=== PATIENT | female | born 1990 | race Caucasian/White ===

== ENCOUNTER → 2020-10-19 | Outpatient (CLI) | payer OTHER, MEDICAID ==
--- NOTE | 2020-10-20 23:43 | ECWPNPC ---
PATIENT NAME: CHRISTY LEYVA : 1990 GENDER: FEMALE VISIT DATE: 10/19/2020 DISCHARGE DATE: 10/19/20 1020 VISIT LOCKED DATE TIME: PHYSICIAN: ALLIE FELIZ RESOURCE: ALLIE FELIZ REASON FOR APPOINTMENT 1. CHRONIC LOW BACK HISTORY OF PRESENT ILLNESS DEPRESSION SCREENING: PHQ-2 (2015 EDITION) LITTLE INTEREST OR PLEASURE IN DOING THINGS?NOT AT ALL FEELING DOWN, DEPRESSED, OR HOPELESS?NOT AT ALL TOTAL SCORE0 GENERAL: HPI 29-YEAR-OLD FEMALE IN FOR INITIAL PAIN CONSULT REGARDING CHRONIC LOW BACK PAIN. PATIENT STATES THE PAIN HAS BEEN PRESENT FOR APPROXIMATELY ONE YEAR SHE DENIES HISTORY OF TRAUMA TO THE AREA. PATIENT IS CURRENTLY ON GABAPENTIN AND SHE ADMITS THAT IT IS NOT BENEFICIAL. SHE RATES HER PAIN CURRENTLY AT A 5 OUT OF 10 AND DESCRIBES IT ACHING, CONTINUOUS, AND SHARP. PATIENT ADMITS THAT PREVIOUSLY WHEN SHE'S HAD PROCEDURES SHE EXPERIENCED EPISODES OF TACHYCARDIA.. - -. FALL RISK SCREENING: SCREENING : NO FALLS REPORTED IN THE LAST YEAR. PAIN SCREENING: PATIENT HAS A COMPLAINT OF ACUTE OR CHRONIC PAIN :YES LOCATION OF PAIN:LOW BACK INTENSITY OF PAIN (SCALE OF 1 TO 10):5 WHAT DOES YOUR PAIN FEEL LIKE:ACHING, CONTINOUS, SHARP DURATION:CONTINOUS, AWAKENS FROM SLEEP PAIN IS INCREASED BY:ACTIVITIES, PROLONGED STANDING PAIN IS DECREASED BY:OTHERS NOTHING HELPS THE PAIN NURSING NOTE: - -. PAIN CENTER INTAKE QUESTIONS: DO YOU HAVE A HISTORY OF MRSA? :NO DO YOU TAKE A BLOOD THINNERS? :NO DO YOU HAVE ANY BLEEDING DISORDERS? :NO ANY NEW NUMBNESS OR WEAKNESS IN YOUR LEGS OR ARMS? :NO NUMBNESS IN HANDS ANY PACEMAKER,DEFIBRILLATOR, OR DORSAL COLUMN STIMULATOR? :NO DO YOU HAVE ANY RASHES OR OPEN SORES? :NO ARE YOU ALLERGIC TO IV DYE? :NO ARE YOU DIABETIC? :NO ANY NEW PROBLEMS WITH YOUR MEDICATIONS? :NO HAVE YOU RECEIVED A VACCINE IN THE PAST 30 DAYS? :NO DO YOU PLAN TO RECEIVE A VACCINE IN THE NEXT 21 DAYS? :NO DO YOU NEED ANY PRESCRIPTION? :NO DO YOU TAKE ANY IMMUNOSUPPRESSIVE MEDICATIONS? :NO IS THERE A CHANCE YOU COULD BE ? :NO ARE YOU BREAST FEEDING? :NO CURRENT MEDICATIONS TAKING VENTOLIN HFA 108 (90 BASE) MCG/ACT AEROSOL SOLUTION 1 PUFF NEEDED INHALATION EVERY 4 HRS TAKING DULOXETINE HCL 30 MG CAPSULE DELAYED RELEASE PARTICLES 1 CAPSULE ORALLY ONCE DAILY TAKING GABAPENTIN 100 MG CAPSULE 1 CAPSULE ORALLY THREE TIMES DAILY TAKING SUMATRIPTAN SUCCINATE 50 MG TABLET 1 TABLET AT LEAST 2 HOURS BETWEEN DOSES NEEDED ORALLY TWICE A DAY TAKING TRAMADOL HCL 50 MG TABLET 1 TABLET NEEDED ORALLY ONCE A DAY TAKING SULFAMETHOXAZOLE-TMP DS , STOP DATE 10/21/2020, NOTES: FOR UTI TAKING DILTIAZEM HCL ER BEADS 120 MG CAPSULE EXTENDED RELEASE 24 HOUR 1 CAPSULE ORALLY ONCE A DAY TAKING ALBUTEROL SULFATE (2.5 MG/3ML) 0.083% NEBULIZATION SOLUTION 3 ML NEEDED INHALATION EVERY 4 HRS, PRN TAKING ACETAMINOPHEN 500 MG CAPSULE 2 TABLET NEEDED ORALLY EVERY 4 HRS NOT-TAKING ESCITALOPRAM OXALATE 10 MG TABLET 1 TABLET ORALLY ONCE A DAY NOT-TAKING CYCLOBENZAPRINE HCL 10 MG TABLET 1 TABLET AT BEDTIME NEEDED ORALLY ONCE A DAY NOT-TAKING PREDNISONE 10 MG TABLET 1 TABLET ORALLY WEANING DOSE 3TABS/DAY, 2 TABS/DAY, 1 TB/DAY NOT-TAKING HYDROCORTISONE MAX ST 1 % CREAM 1 APPLICATION EXTERNALLY TWICE A DAY NOT-TAKING IMMODIUM 1 TAB ORAL 1 TAB BY MOUTH WITH EACH LOOSE STOOL, MDD 6 NOT-TAKING LIDOCAINE & CANNABINOIDS 5 & 20 % & MG/ML THERAPY PACK DIRECTED COMBINATION NOT-TAKING HYDROCODONE-ACETAMINOPHEN 5-325 MG TABLET 1 TABLET NEEDED ORALLY BID, PRN NOT-TAKING IBUPROFEN 800 MG TABLET 1 TABLET WITH FOOD OR MILK NEEDED ORALLY THREE TIMES DAILY NEEDED MEDICATION LIST REVIEWED AND RECONCILED WITH THE PATIENT PAST MEDICAL HISTORY ANXIETY ASTHMA DEPRESSION ACID REFLUX ATTENTION DEFICIT HYPERACTIVITY DISORDER HX HEART MURMUR AT HX CERVICAL DYSPLASIA HX OF GONORRHEA MISCARRIAGE ARTHRITIS OSTEOPOROSIS LEFT KNEE CYST MIGRAINES PTSD SINUS TACHYCARDIA ALLERGIES AMOXICILLIN: RASH - ALLERGY EXCEDRIN EXTRA STRENGTH: BLISTERS - ALLERGY PENICILLIN (FOR ALLERGIES USE ONLY): ANAPHYLAXIS - ALLERGY SURGICAL HISTORY 2009 & 2012 ENDOSCOPY TUBAL LIGATION 2016 FAMILY HISTORY FATHER: ALIVE 50 YRS MOTHER: ALIVE 48 YRS SON(S): ALIVE DAUGHTER(S): ALIVE MATERNAL GRAND FATHER: MATERNAL GRAND MOTHER: UNKNOWN 2 SON(S) , 2 DAUGHTER(S) - HEALTHY. MOTHER- HX OF MENTAL RETARDATION. SOCIAL HISTORY GENERAL: TOBACCO USE ARE YOU A:CURRENT SMOKER ARE YOU INTERESTED IN QUITTING?THINKING ABOUT QUITTING PREVIOUS QUIT ATTEMPTS?YES, WITHIN THE LAST 6 MONTHS. HOW MANY CIGARETTES A DAY DO YOU SMOKE?6-10 PATIENT COUNSELED ON THE DANGERS OF TOBACCO USE AND URGED TO QUIT:10/19/2020 SMOKING CESSATION INFORMATION GIVEN04/30/2019 REFUSED LATEX QUESTIONNAIRE LATEX ALLERGY : HAVE YOU EVER DEVELOPED ANY TYPE OF REACTION AFTER HANDLING LATEX PRODUCTS SUCH RUBBER GLOVES, CONDOMS, DIAPHRAGMS, BALLOONS, SOCKS, OR UNDERWEAR?NO LATEX ALLERGY : HAVE YOU EVER DEVELOPED ANY TYPE OF REACTION DURING OR AFTER DENTAL APPOINTMENT, VAGINAL/RECTAL EXAMINATION, SURGICAL PROCEDURE, OR ANY OTHER EXPOSURE?NO LATEX RISK : HAVE YOU EVER HAD ANY DIFFICULTY BREATHING OR HIVES AFTER EATING OR HANDLING ANY FRUITS, OR VEGETABLES; SUCH KIWI, BANANAS, STONE FRUITS, OR CHESTNUTSNO LATEX RISK : DO YOU HAVE A PREVIOUS PERSONAL HISTORY OF MORE THAN NINE SURGERIES, SPINA BIFIDA, OR REPEATED CATHERIZATIONS? NO LATEX RISK : ARE YOU FREQUENTLY EXPOSED TO LATEX PRODUCTS IN YOUR OCCUPATION?NO DATE ASKED : 10/19/2020 ALCOHOL USE: NO. RECREATIONAL DRUG USE DRUG USE?NO CAFFEINE CAFFEINE USE?YES HOW OFTEN AND HOW MUCH? 1-2 CUPS PER DAY BAHAI BAHAI NO CONFUCIANIST BELIEFS THAT WOULD IMPACT HEALTH CARE. LANGUAGE LANGUAGES SPOKEN:PASHTO EDUCATION LEVEL OF EDUCATION: GED LEARNING BARRIERS / SPECIAL NEEDS BARRIERS TO LEARNING?YES COMMENTS LEARNING DISABILITY HEARING IMPAIRED?NO VISION IMPAIRED?YES :CORRECTIVE LENSES COGNITIVELY IMPAIRED?NO READINESS TO LEARN?YES LEARNING PREFERENCES?NO LEARNING CAPABILITIES PRESENT?YES EMOTIONAL BARRIERS?YES COMMENTS ANXIETY, DEPRESSION AND PTSD SPECIAL DEVICES?NO PANEL RAISER OPERATOR NEEDED?NO DOMESTIC VIOLENCE DO YOU FEEL SAFE IN YOUR ENVIRONMENT?YES OCCUPATION: UNEMPLOYED. DIET: REGULAR, NO RESTRICTIONS. EXERCISE: NO REGULAR EXERCISE. MARITAL STATUS: . OTHERS AT HOME: LIVES WITH OTHERS. PATIENT DESCRIBES PAIN :SHARP, STABBING, TENDER, SORE FROM 0-10, WHAT LEVEL IS YOUR PAIN TODAY?6 HAVE YOU BEEN SICK IN THE LAST WEEK (COLD, COUGH, FEVER, FLU, ETC)YES DO YOU TAKE ANY BLOOD THINNERS?NO DO YOU HAVE ANY RASHES OR OPEN SORES?YES OPEN SORES ANY CHANGE IN BOWEL OR BLADDER CONTROL?NO ARE YOU ALLERGIC TO SHELLFISH OR IV DYE?NO ARE YOU DIABETIC?NO DO YOU HAVE A PACEMAKER OR DEFIBRILLATOR?NO ANY NEW PROBLEMS WITH MEDICINES OR NEW ALLERGIESNO ANY NEW PATTERNS OF PAIN OR NUMBNESS?YES ANY CHANGE IN YOUR MEDICAL CONDITION?NO HAVE YOU FALLEN IN THE LAST 6 MONTHS?NO DO YOU USE ANY TYPE OF TOBACCO (SMOKE, SMOKELESS, CHEW, ETC.)YES SMOKES DAILY ARE YOU ABUSED, NEGLECTED, OR IN AN UNSAFE ENVIRONMENT?NO DO YOU HAVE THOUGHTS OF HURTING YOURSELF OR SOMEONE ELSE?NO DO YOU NEED ANY PRESCRIPTIONS?NO DO YOU HAVE ANY OTHER QUESTIONS OR CONCERNS?NO - WAS THE PROVIDER NOTIFIED OF ANY PERTINENT INFO?YES HAS THE PATIENT BEEN EDUCATED REGARDING HIS/HER PLAN OF CARE?YES ORIENTED TO PAIN MANAGEMENT HAS THE PATIENT BEEN EDUCATED REGARDING PAIN, THE RISK FOR PAIN, THE IMPORTANCE OF EFFECTIVE PAIN MANAGEMENT, AND THE PAIN ASSESSMENT PROCESS?YES ADVANCE DIRECTIVE ADVANCE DIRECTIVE DISCUSSED WITH PATIENT:YES PT DENIES HAVING HCP AND DECLINES ASSISTANCE WITH PAPERWORK HOSPITALIZATION/MAJOR DIAGNOSTIC PROCEDURE SURGERY RELATED REVIEW OF SYSTEMS CONSTITUTIONAL: ANY RECENT FEVER NO . CHILLS NO . WEIGHT CHANGE OF UNKNOWN REASONS NO . MUSCULOSKELETAL: ANY UNUSUAL JOINT PAIN OR SWELLING NOT MENTIONED NO . SYSTEMIC LUPUS NO . ANY NEUROMUSCULAR DISORDER NOT MENTIONED NO . LYME DISEASE NO . GASTROENTEROLOGY: ANY NEW CHANGE IN BOWEL CONTROL? NO . HISTORY OF LIVER DISORDER NOT MENTIONED NO . HISTORY OF UNUSUAL ABDOMINAL PAIN OR CRAMPING NOT MENTIONED NO . NO CONSTIPATION. GENITOURINARY: ANY NEW CHANGE IN BLADDER CONTROL? NO . ANY RENAL/KIDNEY CONDITON NOT MENTIONED NO . NEUROLOGY: HISTORY OF TBI NOT MENTIONED NO . OTHER NEW NUMBNESS OR PAIN PATTERNS NOT MENTIONED NO . NEW ONSET DIZZINESS OR NEUROLOGICAL CHANGES NOT MENTIONED NO . HISTORY OF SEVERE HEADACHES NOT MENTIONED NO . HISTORY OF STROKE OR NEUROLOGICAL DISORDER NOT MENTIONED NO . CARDIOLOGY: HEART SURGERY NO . CONGESTIVE HEART FAILURE/FLUID OVERLOAD NOT MENTIONED NO . HISTORY OF CHEST PAIN,IRREGULAR HEART BEAT NOT MENTIONED NO . RESPIRATORY: SHORTNESS OF BREATH ON EXERTION, WHEEZES, UNUSUAL COUGH NOT MENTIONED NO . ENDOCRINOLOGY: ADRENAL GLAND OR THYROID DISORDERS NOT MENTIONED NO . UNUSUAL URINATION, DIZZINESS OR LETHARGY NOT MENTIONED NO . VITAL SIGNS WT 158.8 LBS, HT 61 IN, BMI 30.00 INDEX, BP 113/73 MM HG, HR 89 /MIN, RR 18 /MIN, TEMP 96%, OXYGEN SAT % 96%, SAFE IN ENV? (Y/N) YES, NA INITIALS , REVIEWED BY: SREEKANTH HESTER MA. EXAMINATION GENERAL EXAMINATION: GENERALNO ACUTE DISTRESS, WELL NOURISHED AND HYDRATED. PSYCHAPPROPRIATE MOOD AND AFFECT . LUNGS:CLEAR TO AUSCULTATION BILATERALLY, NO WHEEZES, RHONCHI, RALES. HEART:NO MURMURS, REGULAR RATE AND RHYTHM. BACK:POINT TENDER ALONG LUMBAR SPINE, PATIENT DOES ENDORSE INCREASED PAIN WITH FACET LOADING. MUSCULOSKELETAL:EQUAL STRENGTH OF THE LOWER EXTREMITIES BILATERALLY.. ASSESSMENTS SPONDYLOSIS WITHOUT MYELOPATHY OR RADICULOPATHY, LUMBAR REGION - M47.816 (PRIMARY) TREATMENT SPONDYLOSIS WITHOUT MYELOPATHY OR RADICULOPATHY, LUMBAR REGION NOTES: 29-YEAR-OLD FEMALE IN FOR INITIAL PAIN CONSULT REGARDING LOW BACK PAIN. GIVEN PRESENTING SYMPTOMS AND RESULTS OF PHYSICAL EXAMINATION RECOMMENDED TAPERING DOSE OF GABAPENTIN FOLLOWS 100 MG TWICE A DAY X 1 WEEK THEN 100 MG DAILY TIMES ONE WEEK THEN 100 MG EVERY OTHER DAY TIMEX 1 WEEK THEN STOP. FURTHER RECOMMENDED STARTING LYRICA 75 MG TWICE A DAY WITH FOLLOW-UP IN ONE MONTH TO DETERMINE EFFICACY TREATMENT. PATIENT HAS EXPRESSED UNDERSTANDING OF AND WAS IN AGREEMENT WITH TREATMENT PLAN. GIVEN TIME TO ASK QUESTIONS AND EXPRESS CONCERNS. ISTOP REGISTRY REVIEWED AND DEMONSTRATES COMPLLIANCE. (REF # [id number] ). OTHERS START LYRICA CAPSULE, 75 MG, 1 CAPSULE, ORALLY, TWICE DAILY, 30 DAYS, 60 NOTES: PREGABALIN MATERIAL WAS PRINTED. CLINICAL NOTES: LYRICA INFORMATION PRINTED AND PROVIDED TO PATIENT. PATIENT VERBALIZED AN UNDERSTANDING,. HEMA HESTER MA. PROCEDURE CODES FA211 ESTABILISHED PATIENT [facility] FACILITY CHARGE DISPOSITION & COMMUNICATION FOLLOW UP 4 WEEKS (REASON: NEW MED) ELECTRONICALLY SIGNED BY SCOTTY GONZALES ON 10/20/2020 AT 08:42 AM EDT DISCLAIMER : THIS IS A VISIT SUMMARY EXTRACTED FROM THE [employer] CHART. IT IS NOT A COPY OF THE [employer] PROGRESS NOTE. MTDD
== END ==
LOC: M PAIN 09:30
PROVIDERS: ATTEND Family Medicine
DX: M47.816 Spondylosis without myelopathy or radiculopathy, lumbar region (principal); G89.29 Other chronic pain; J45.909 Unspecified asthma, uncomplicated; G43.909 Migraine, unspecified, not intractable, without status migrainosus; F17.210 Nicotine dependence, cigarettes, uncomplicated; Z86.59 Personal history of other mental and behavioral disorders; Z88.0 Allergy status to penicillin; Z88.1 Allergy status to other antibiotic agents; Z88.8 Allergy status to other drugs, medicaments and biological substances; Z79.899 Other long term (current) drug therapy

== ENCOUNTER → 2020-11-24 | Outpatient (CLI) | payer OTHER, MEDICAID ==
--- NOTE | 2020-11-26 03:25 | ECWPNPC ---
PATIENT NAME: CHRISTY FALL : 1990 GENDER: FEMALE VISIT DATE: 11/24/2020 DISCHARGE DATE: 11/24/20 1102 VISIT LOCKED DATE TIME: PHYSICIAN: ALLIE FELIZ RESOURCE: ALLIE FELIZ REASON FOR APPOINTMENT 1. CHRONIC LOW BACK HISTORY OF PRESENT ILLNESS GENERAL: HPI 29-YEAR-OLD FEMALE IN FOR CHRONIC PAIN FOLLOW-UP. AT LAST CLINIC VISIT PATIENT WAS STARTED ON LYRICA HOWEVER SHE WAS UNABLE TO START MEDICATION HER INSURANCE DENIED PAYING FOR IT. PATIENT ADMITS TO BEING ON GABAPENTIN IN THE PAST AND EXPERIENCING SIDE EFFECTS SUCH SPEECH IMPEDIMENT AND DIFFICULTY SLEEPING AT NIGHT. SHE RATES HER PAIN CURRENTLY AT AN 8 OUT OF 10.. -. FALL RISK SCREENING: SCREENING : NO FALLS REPORTED IN THE LAST YEAR. PAIN SCREENING: PATIENT HAS A COMPLAINT OF ACUTE OR CHRONIC PAIN :YES LOCATION OF PAIN:LOW BACK, LEFT HIP, RIGHT HIP INTENSITY OF PAIN (SCALE OF 1 TO 10):8 WHAT DOES YOUR PAIN FEEL LIKE:ACHING, BURNING, SHARP, STABBING DURATION:CONTINOUS, CONSTANT, AWAKENS FROM SLEEP PAIN IS INCREASED BY:ACTIVITIES, PROLONGED STANDING PAIN IS DECREASED BY:USE OF PAIN MEDICATIONS GABAPENTIN HELPS SOME NURSING NOTE: -. PAIN CENTER INTAKE QUESTIONS: DO YOU HAVE A HISTORY OF MRSA? :NO DO YOU TAKE A BLOOD THINNERS? :NO DO YOU HAVE ANY BLEEDING DISORDERS? :NO ANY NEW NUMBNESS OR WEAKNESS IN YOUR LEGS OR ARMS? :NO ANY PACEMAKER,DEFIBRILLATOR, OR DORSAL COLUMN STIMULATOR? :NO DO YOU HAVE ANY RASHES OR OPEN SORES? :NO ARE YOU ALLERGIC TO IV DYE? :NO ARE YOU DIABETIC? :NO ANY NEW PROBLEMS WITH YOUR MEDICATIONS? :NO HAVE YOU RECEIVED A VACCINE IN THE PAST 30 DAYS? :NO DO YOU PLAN TO RECEIVE A VACCINE IN THE NEXT 21 DAYS? :NO DO YOU NEED ANY PRESCRIPTION? :NO DO YOU TAKE ANY IMMUNOSUPPRESSIVE MEDICATIONS? :NO IS THERE A CHANCE YOU COULD BE ? :NO ARE YOU BREAST FEEDING? :NO CURRENT MEDICATIONS TAKING VENTOLIN HFA 108 (90 BASE) MCG/ACT AEROSOL SOLUTION 1 PUFF NEEDED INHALATION EVERY 4 HRS TAKING DULOXETINE HCL 30 MG CAPSULE DELAYED RELEASE PARTICLES 1 CAPSULE ORALLY ONCE DAILY TAKING GABAPENTIN 100 MG CAPSULE 1 CAPSULE ORALLY THREE TIMES DAILY TAKING SUMATRIPTAN SUCCINATE 50 MG TABLET 1 TABLET AT LEAST 2 HOURS BETWEEN DOSES NEEDED ORALLY TWICE A DAY TAKING TRAMADOL HCL 50 MG TABLET 1 TABLET NEEDED ORALLY ONCE A DAY TAKING DILTIAZEM HCL ER BEADS 120 MG CAPSULE EXTENDED RELEASE 24 HOUR 1 CAPSULE ORALLY ONCE A DAY TAKING ALBUTEROL SULFATE (2.5 MG/3ML) 0.083% NEBULIZATION SOLUTION 3 ML NEEDED INHALATION EVERY 4 HRS, PRN TAKING ACETAMINOPHEN 500 MG CAPSULE 2 TABLET NEEDED ORALLY EVERY 4 HRS NOT-TAKING ESCITALOPRAM OXALATE 10 MG TABLET 1 TABLET ORALLY ONCE A DAY NOT-TAKING CYCLOBENZAPRINE HCL 10 MG TABLET 1 TABLET AT BEDTIME NEEDED ORALLY ONCE A DAY NOT-TAKING PREDNISONE 10 MG TABLET 1 TABLET ORALLY WEANING DOSE 3TABS/DAY, 2 TABS/DAY, 1 TB/DAY NOT-TAKING HYDROCORTISONE MAX ST 1 % CREAM 1 APPLICATION EXTERNALLY TWICE A DAY NOT-TAKING IMMODIUM 1 TAB ORAL 1 TAB BY MOUTH WITH EACH LOOSE STOOL, MDD 6 NOT-TAKING LIDOCAINE & CANNABINOIDS 5 & 20 % & MG/ML THERAPY PACK DIRECTED COMBINATION NOT-TAKING HYDROCODONE-ACETAMINOPHEN 5-325 MG TABLET 1 TABLET NEEDED ORALLY BID, PRN NOT-TAKING IBUPROFEN 800 MG TABLET 1 TABLET WITH FOOD OR MILK NEEDED ORALLY THREE TIMES DAILY NEEDED NOT-TAKING LYRICA 75 MG CAPSULE 1 CAPSULE ORALLY TWICE DAILY, NOTES: WAS NOT APPROVED BY INSURANCE MEDICATION LIST REVIEWED AND RECONCILED WITH THE PATIENT PAST MEDICAL HISTORY ANXIETY ASTHMA DEPRESSION ACID REFLUX ATTENTION DEFICIT HYPERACTIVITY DISORDER HX HEART MURMUR AT HX CERVICAL DYSPLASIA HX OF GONORRHEA MISCARRIAGE ARTHRITIS OSTEOPOROSIS LEFT KNEE CYST MIGRAINES PTSD SINUS TACHYCARDIA ALLERGIES AMOXICILLIN: RASH - ALLERGY EXCEDRIN EXTRA STRENGTH: BLISTERS - ALLERGY PENICILLIN (FOR ALLERGIES USE ONLY): ANAPHYLAXIS - ALLERGY SURGICAL HISTORY 2009 & 2012 ENDOSCOPY TUBAL LIGATION 2016 SOCIAL HISTORY GENERAL: TOBACCO USE ARE YOU A:CURRENT SMOKER ARE YOU INTERESTED IN QUITTING?THINKING ABOUT QUITTING PREVIOUS QUIT ATTEMPTS?YES, WITHIN THE LAST 6 MONTHS. COUNSELED THE PATIENT ON SMOKING CESSATION, EDUCATION [id number]/23/2021 HOW MANY CIGARETTES A DAY DO YOU SMOKE?6-10 PATIENT COUNSELED ON THE DANGERS OF TOBACCO USE AND URGED TO QUIT:10/19/2020 SMOKING CESSATION INFORMATION GIVEN04/30/2019 REFUSED LATEX QUESTIONNAIRE LATEX ALLERGY : HAVE YOU EVER DEVELOPED ANY TYPE OF REACTION AFTER HANDLING LATEX PRODUCTS SUCH RUBBER GLOVES, CONDOMS, DIAPHRAGMS, BALLOONS, SOCKS, OR UNDERWEAR?NO LATEX ALLERGY : HAVE YOU EVER DEVELOPED ANY TYPE OF REACTION DURING OR AFTER DENTAL APPOINTMENT, VAGINAL/RECTAL EXAMINATION, SURGICAL PROCEDURE, OR ANY OTHER EXPOSURE?NO LATEX RISK : HAVE YOU EVER HAD ANY DIFFICULTY BREATHING OR HIVES AFTER EATING OR HANDLING ANY FRUITS, OR VEGETABLES; SUCH KIWI, BANANAS, STONE FRUITS, OR CHESTNUTSNO LATEX RISK : DO YOU HAVE A PREVIOUS PERSONAL HISTORY OF MORE THAN NINE SURGERIES, SPINA BIFIDA, OR REPEATED CATHERIZATIONS? NO LATEX RISK : ARE YOU FREQUENTLY EXPOSED TO LATEX PRODUCTS IN YOUR OCCUPATION?NO DATE ASKED : 11/24/2020 ALCOHOL USE: NO. RECREATIONAL DRUG USE DRUG USE?NO CAFFEINE CAFFEINE USE?YES HOW OFTEN AND HOW MUCH? 1-2 CUPS PER DAY PROTESTANT PROTESTANT NO ZOROASTRIAN BELIEFS THAT WOULD IMPACT HEALTH CARE. LANGUAGE LANGUAGES SPOKEN:LUXEMBOURGER EDUCATION LEVEL OF EDUCATION: GED LEARNING BARRIERS / SPECIAL NEEDS CHANGE FROM LAST VISIT?YES BARRIERS TO LEARNING?YES COMMENTS LEARNING DISABILITY HEARING IMPAIRED?NO VISION IMPAIRED?YES :CORRECTIVE LENSES COGNITIVELY IMPAIRED?NO READINESS TO LEARN?YES LEARNING PREFERENCES?NO LEARNING CAPABILITIES PRESENT?YES EMOTIONAL BARRIERS?YES COMMENTS ANXIETY, DEPRESSION AND PTSD SPECIAL DEVICES?YES : BACK BRACE BILLING CONTROL CLERK NEEDED?NO DOMESTIC VIOLENCE DO YOU FEEL SAFE IN YOUR ENVIRONMENT?YES OCCUPATION: UNEMPLOYED. DIET: REGULAR, NO RESTRICTIONS. EXERCISE: NO REGULAR EXERCISE. MARITAL STATUS: . OTHERS AT HOME: LIVES WITH OTHERS. PATIENT DESCRIBES PAIN :SHARP, STABBING, TENDER, SORE FROM 0-10, WHAT LEVEL IS YOUR PAIN TODAY?6 HAVE YOU BEEN SICK IN THE LAST WEEK (COLD, COUGH, FEVER, FLU, ETC)YES DO YOU TAKE ANY BLOOD THINNERS?NO DO YOU HAVE ANY RASHES OR OPEN SORES?YES OPEN SORES ANY CHANGE IN BOWEL OR BLADDER CONTROL?NO ARE YOU ALLERGIC TO SHELLFISH OR IV DYE?NO ARE YOU DIABETIC?NO DO YOU HAVE A PACEMAKER OR DEFIBRILLATOR?NO ANY NEW PROBLEMS WITH MEDICINES OR NEW ALLERGIESNO ANY NEW PATTERNS OF PAIN OR NUMBNESS?YES ANY CHANGE IN YOUR MEDICAL CONDITION?NO HAVE YOU FALLEN IN THE LAST 6 MONTHS?NO DO YOU USE ANY TYPE OF TOBACCO (SMOKE, SMOKELESS, CHEW, ETC.)YES SMOKES DAILY ARE YOU ABUSED, NEGLECTED, OR IN AN UNSAFE ENVIRONMENT?NO DO YOU HAVE THOUGHTS OF HURTING YOURSELF OR SOMEONE ELSE?NO DO YOU NEED ANY PRESCRIPTIONS?NO DO YOU HAVE ANY OTHER QUESTIONS OR CONCERNS?NO - WAS THE PROVIDER NOTIFIED OF ANY PERTINENT INFO?YES HAS THE PATIENT BEEN EDUCATED REGARDING HIS/HER PLAN OF CARE?YES ORIENTED TO PAIN MANAGEMENT HAS THE PATIENT BEEN EDUCATED REGARDING PAIN, THE RISK FOR PAIN, THE IMPORTANCE OF EFFECTIVE PAIN MANAGEMENT, AND THE PAIN ASSESSMENT PROCESS?YES ADVANCE DIRECTIVE ADVANCE DIRECTIVE DISCUSSED WITH PATIENT:YES PT DENIES HAVING HCP AND DECLINES ASSISTANCE WITH PAPERWORK HOSPITALIZATION/MAJOR DIAGNOSTIC PROCEDURE SURGERY RELATED REVIEW OF SYSTEMS CONSTITUTIONAL: ANY RECENT FEVER NO . CHILLS NO . WEIGHT CHANGE OF UNKNOWN REASONS NO . GASTROENTEROLOGY: NEW UNEXPLAINABLE CHANGES IN BOWEL CONTROL PATIENT ADMITS TO COMPLETE LOSS OF BOWEL CONTROL X3. . CONSTIPATION NO . GENITOURINARY: ANY NEW CHANGE IN BLADDER CONTROL? NO . NEUROLOGY: NEW ONSET DIZZINESS OR NEUROLOGICAL CHANGES NOT MENTIONED NO . NEW NUMBNESS OR PAIN PATTERNS NOT MENTIONED AND PERTINENT TO TODAY'S VISIT NO . CARDIOLOGY: NEW CHEST PRESSURE NO . PATIENT DENIES NO . RESPIRATORY: UNEXPLAINABLE COUGH NO . NEW SHORTNESS OF BREATH NO . VITAL SIGNS WT 158.6 LBS, HT 61 IN, BMI 29.96 INDEX, BP 118/67 MM HG, HR 90 /MIN, RR 18 /MIN, TEMP 97.5 F, OXYGEN SAT % 97%, SAFE IN ENV? (Y/N) YES, NA INITIALS AW 1021, REVIEWED BY: SREEKANTH HESTER MA. EXAMINATION GENERAL EXAMINATION: GENERALNO ACUTE DISTRESS, WELL NOURISHED AND HYDRATED. PSYCHAPPROPRIATE MOOD AND AFFECT . LUNGS:CLEAR TO AUSCULTATION BILATERALLY, NO WHEEZES, RHONCHI, RALES. HEART:NO MURMURS, REGULAR RATE AND RHYTHM. ASSESSMENTS SPONDYLOSIS WITHOUT MYELOPATHY OR RADICULOPATHY, LUMBAR REGION - M47.816 (PRIMARY) TREATMENT SPONDYLOSIS WITHOUT MYELOPATHY OR RADICULOPATHY, LUMBAR REGION STOP GABAPENTIN CAPSULE, 100 MG, 1 CAPSULE, ORALLY, THREE TIMES DAILY REFILL LYRICA CAPSULE, 75 MG, 1 CAPSULE, ORALLY, TWICE DAILY, 30 DAYS, 60, NOTES: WAS NOT APPROVED BY INSURANCE NOTES: 29-YEAR-OLD FEMALE IN FOR CHRONIC PAIN FOLLOW-UP. GIVEN PRESENTING SYMPTOMS AND PATIENT'S REACTION TO GABAPENTIN IN THE PAST WILL RECOMMEND RESUBMITTING FOR LYRICA WITH FOLLOW-UP IN 1 MONTH TO DETERMINE EFFICACY OF TREATMENT. SHE WAS ENCOURAGED TO GO TO TO EVALUATE BOWEL INCONTINENCE X 3. PATIENT HAS EXPRESSED UNDERSTANDING OF AND WAS IN AGREEMENT WITH TREATMENT PLAN. GIVEN TIME QUESTIONS AND EXPRESS CONCERNS. ISTOP REGISTRY REVIEWED AND DEMONSTRATES COMPLLIANCE. (REF # [id number] ). OTHERS NOTES: PREGABALIN MATERIAL WAS PRINTED. CLINICAL NOTES: LYRICA INFORMATION PRINTED AND PROVIDED TO PATIENT. PATIENT VERBALIZED AN UNDERSTANDING,. HEMA HESTER MA. PROCEDURE CODES FA211 ESTABILISHED PATIENT [facility] CHARGE DISPOSITION & COMMUNICATION FOLLOW UP 4 WEEKS (REASON: MED) ELECTRONICALLY SIGNED BY SCOTTY GONZALES ON 11/25/2020 AT 09:05 AM EDT DISCLAIMER : THIS IS A VISIT SUMMARY EXTRACTED FROM THE [employer] CHART. IT IS NOT A COPY OF THE [employer] PROGRESS NOTE. MTDD
== END ==
LOC: M PAIN 10:15
PROVIDERS: ATTEND Family Medicine
DX: M47.816 Spondylosis without myelopathy or radiculopathy, lumbar region (principal); G89.29 Other chronic pain; J45.909 Unspecified asthma, uncomplicated; G43.909 Migraine, unspecified, not intractable, without status migrainosus; F17.210 Nicotine dependence, cigarettes, uncomplicated; Z86.59 Personal history of other mental and behavioral disorders; Z88.0 Allergy status to penicillin; Z88.1 Allergy status to other antibiotic agents; Z88.6 Allergy status to analgesic agent; Z79.899 Other long term (current) drug therapy

== ENCOUNTER 2021-01-02 19:19 | Emergency (ER) | payer OTHER ==
[~2021-01-02] VITALS: Ht 154.9 cm; Wt 73.3 kg
[~2021-01-02 19:19] MED LIST: AFRI0.058; AMOX500T PO; CYCL5TAB PO; DILT120C89 PO; DULO1CAP5; EQ 8650T PO; GABA-282 PO; HYDR-3715 PO; IBUP-1022 PO; IBUP-1428; LEVO750T13 PO; NAPR-837 PO; ONDA4TAB6 PO; PENI500T PO; PRED20TA PO; PROV108A INH; SUMA50TA2 PO; TIZA10TA PO; TRAM50TA2 PO; ZOFR4TAB16 PO
[2021-01-02 19:20] VITALS: BP 115/64
== END 2021-01-02 20:38 | disposition left against medical advice (07) ==
LOC: MERGE 19:19 → M ED 19:19
DX: Z53.21 Procedure and treatment not carried out due to patient leaving prior to being seen by health care provider (principal)

== ENCOUNTER → 2021-04-21 | Outpatient (CLI) | payer OTHER ==
[~2021-04-21] MED LIST changes: -TIZA10TA PO; +TIZA4TAB4 PO
== END ==
LOC: M LABSMTC 10:03
PROVIDERS: ATTEND Family Medicine
DX: Z20.822 Contact with and (suspected) exposure to COVID-19 (principal)

== ENCOUNTER → 2021-05-03 | Outpatient (CLI) | payer OTHER ==
[~2021-05-03] MED LIST changes: +TIZA10TA PO; -TIZA4TAB4 PO
== END ==
LOC: M RAD 10:37
PROVIDERS: ATTEND Otolaryngology
DX: J32.0 Chronic maxillary sinusitis (principal)

== ENCOUNTER → 2021-05-05 | Outpatient (CLI) | payer OTHER ==
[2021-05-05 14:07] LABS: BACTERIA, URINE AUTO NEGATIVE (NEGATIVE); RBC, URINE AUTO 0 /HPF (0-3); SQUAMOUS EPITHELIAL CELL UR AU 0 /HPF (0-6); WBC, URINE AUTO 0 /HPF (0-3)
== END ==
LOC: M LAB 12:11
PROVIDERS: ATTEND Specialist
DX: N39.0 Urinary tract infection, site not specified (principal)

== ENCOUNTER 2021-06-28 18:51 | Emergency (ER) | payer OTHER ==
[~2021-06-28] VITALS: Ht 154.9 cm; Wt 75.2 kg
[2021-06-28] MEDS ORDERED: KETOROLAC 30 MG/ML 1ML VIAL IV ONE (21:40)
[2021-06-28] MEDS ORDERED: NS 1,000 ML IV ONE (21:40)
[2021-06-28] MEDS ORDERED: ONDANSETRON 4MG/2ML VIAL IV ONE (21:40)
[2021-06-28 22:07] LABS: BASO # 0.1 10^3/uL (0.0-0.2); BASO % 0.7 % (0.0-1.0); EOS # 0.4 10^3/uL (0.0-0.5); EOS % 4.1 % (0.0-3.0); HEMATOCRIT 39.3 % (36.0-47.0); HEMOGLOBIN 13.3 g/dl (12.0-15.5); LYMPH # 3.2 10^3/uL (1.5-5.0); LYMPH % 32.1 % (24.0-44.0); MEAN CORPUSCULAR HEMOGLOBIN 30.4 pg (27.0-33.0); MEAN CORPUSCULAR HGB CONC 33.8 g/dl (32.0-36.5); MEAN CORPUSCULAR VOLUME 89.7 fl (80.0-96.0); MONO # 0.8 10^3/uL (0.0-0.8); MONO % 7.6 % (2.0-8.0); NEUTROPHILS # 5.6 10^3/uL (1.5-8.5); NEUTROPHILS % 55.3 % (36.0-66.0); PLATELET COUNT, AUTOMATED 305 10^3/uL (150-450); RED BLOOD COUNT 4.38 10^6/uL (4.00-5.40); WHITE BLOOD COUNT 10.1 10^3/uL (4.0-10.0)
[2021-06-28 22:30] LABS: ALBUMIN 3.6 GM/DL (3.2-5.2); ALT/SGPT 18 U/L (12-78); BILIRUBIN,DIRECT < 0.1 MG/DL (0.0-0.2); BILIRUBIN,TOTAL 0.2 MG/DL (0.2-1.0); BLOOD UREA NITROGEN 17 MG/DL (7-18); CALCIUM LEVEL 9.1 MG/DL (8.5-10.1); CARBON DIOXIDE LEVEL 27 MEQ/L (21-32); CHLORIDE LEVEL 110 MEQ/L (98-107); CREATININE FOR GFR 0.71 MG/DL (0.55-1.30); GLOMERULAR FILTRATION RATE > 60.0 (>60); GLUCOSE, FASTING 89 MG/DL (70-100); LIPASE 63 U/L (73-393); POTASSIUM SERUM 3.9 MEQ/L (3.5-5.1); SODIUM LEVEL 143 MEQ/L (136-145); TOTAL PROTEIN 6.4 GM/DL (6.4-8.2)
[2021-06-28 22:31] LABS: HCG, SERUM QUALITATIVE NEGATIVE (NEGATIVE)
[2021-06-28] MEDS ORDERED: ISOVUE-370 76% 100ML VIAL As Ordered ONE (22:39)
[2021-06-29 00:44] VITALS: BP 103/55
== END 2021-06-29 00:52 | disposition home or self-care (01) ==
LOC: M ED 18:51
DX: R10.2 Pelvic and perineal pain (principal); N83.01 Follicular cyst of right ovary; I10 Essential (primary) hypertension; Z91.018 Allergy to other foods; Z88.0 Allergy status to penicillin; Z88.6 Allergy status to analgesic agent; Z79.899 Other long term (current) drug therapy
CPT/HCPCS: 74177; 80048; 80076; 81001; 83690; 84703; 85025; 96361; 96374; 99284; J1885; J2405; Q9967

== ENCOUNTER → 2021-09-01 | Outpatient (CLI) | payer OTHER | LOC: M RAD 09:44 | PROVIDERS: ATTEND Physician Assistant | DX: R06.00 Dyspnea, unspecified (principal) ==

== ENCOUNTER 2021-09-20 10:17 | Emergency (ER) | payer OTHER ==
[~2021-09-20] VITALS: Ht 154.9 cm; Wt 78.1 kg
[2021-09-20 10:18] VITALS: BP 121/72
[2021-09-20] MEDS ORDERED: HYDR-643 (10:35)
[2021-09-20] MEDS ORDERED: CYCL-707 (10:35)
[2021-09-20] MEDS ORDERED: INCR1INH (10:35)
== END 2021-09-20 13:02 | disposition home or self-care (01) ==
LOC: M ED 10:17
DX: M25.551 Pain in right hip (principal); M25.552 Pain in left hip; F17.200 Nicotine dependence, unspecified, uncomplicated; Z88.1 Allergy status to other antibiotic agents; Z88.8 Allergy status to other drugs, medicaments and biological substances; Z88.6 Allergy status to analgesic agent; Z79.899 Other long term (current) drug therapy

== ENCOUNTER → 2021-10-21 | Outpatient (REF) | payer OTHER ==
[~2021-10-21] MED LIST changes: -AFRI0.058; +CYCL-707; +HYDR-643; +INCR1INH; +OXYM15SP2
[2021-10-21 12:51] LABS: APPEARANCE, URINE CLEAR (CLEAR); BACTERIA, URINE AUTO NEGATIVE (NEGATIVE); BILIRUBIN, URINE AUTO NEGATIVE (NEGATIVE); BLOOD, URINE BLOOD NEGATIVE (NEGATIVE); COLOR, URINE STRAW (YELLOW); GLUCOSE, URINE (UA) AUTO NEGATIVE (NEGATIVE); KETONE, URINE AUTO NEGATIVE (NEGATIVE); LEUKOCYTE ESTERASE, URINE AUTO NEGATIVE (NEGATIVE); NITRITE, URINE AUTO NEGATIVE (NEGATIVE); PROTEIN, URINE AUTO NEGATIVE (NEGATIVE); RBC, URINE AUTO 0 /HPF (0-3); SPECIFIC GRAVITY URINE AUTO 1.006 (1.002-1.035); SQUAMOUS EPITHELIAL CELL UR AU 2 /HPF (0-6); UROBILINOGEN, URINE AUTO 0.2 mg/dL (0.0-2.0); WBC, URINE AUTO 0 /HPF (0-3)
== END ==
LOC: M LAB REF 12:21
PROVIDERS: ATTEND Physician Assistant Medical
DX: N39.0 Urinary tract infection, site not specified (principal)

== ENCOUNTER → 2022-01-02 | Outpatient (CLI) | payer OTHER, MEDICAID ==
[~2022-01-02] MED LIST changes: +LEVO1TAB40 PO; -LEVO750T13 PO
== END ==
LOC: M PAIN 14:45
PROVIDERS: ATTEND Nurse Practitioner Family
DX: M54.50 Low back pain, unspecified (principal); G89.29 Other chronic pain; J45.909 Unspecified asthma, uncomplicated; G43.909 Migraine, unspecified, not intractable, without status migrainosus; G25.81 Restless legs syndrome; F17.210 Nicotine dependence, cigarettes, uncomplicated; Z86.59 Personal history of other mental and behavioral disorders; Z88.0 Allergy status to penicillin; Z88.1 Allergy status to other antibiotic agents; Z88.6 Allergy status to analgesic agent; Z79.899 Other long term (current) drug therapy

== ENCOUNTER → 2022-03-28 | Outpatient (CLI) | payer MEDICAID, OTHER ==
[~2022-03-28] VITALS: Ht 160 cm; Wt 74.8 kg
[~2022-03-28] MED LIST changes: +ALBU6.7H6 INH; +ALBU8.5H INH; -PROV108A INH
[2022-03-28 10:21] VITALS: BP 129/85
== END ==
LOC: M PAL 09:37
PROVIDERS: ATTEND Nurse Practitioner Adult Health
DX: C56.1 Malignant neoplasm of right ovary (principal); F17.210 Nicotine dependence, cigarettes, uncomplicated; G43.909 Migraine, unspecified, not intractable, without status migrainosus; G89.29 Other chronic pain; M54.2 Cervicalgia; M79.7 Fibromyalgia; R63.8 Other symptoms and signs concerning food and fluid intake; Z15.01 Genetic susceptibility to malignant neoplasm of breast; Z79.51 Long term (current) use of inhaled steroids; Z79.899 Other long term (current) drug therapy; Z80.1 Family history of malignant neoplasm of trachea, bronchus and lung; Z84.1 Family history of disorders of kidney and ureter; Z88.1 Allergy status to other antibiotic agents; Z88.6 Allergy status to analgesic agent; Z88.8 Allergy status to other drugs, medicaments and biological substances; Z90.710 Acquired absence of both cervix and uterus; Z90.721 Acquired absence of ovaries, unilateral; Z90.79 Acquired absence of other genital organ(s); Z91.09 Other allergy status, other than to drugs and biological substances

== ENCOUNTER → 2022-04-06 | Outpatient (CLI) | payer OTHER ==
[2022-04-06 11:11] LABS: BASO # 0.1 10^3/uL (0.0-0.2); EOS # 0.3 10^3/uL (0.0-0.5); EOS % 3.5 % (0.0-3.0); HEMATOCRIT 43.5 % (36.0-47.0); HEMOGLOBIN 14.1 g/dl (12.0-15.5); LYMPH # 1.9 10^3/uL (1.5-5.0); LYMPH % 25.5 % (24.0-44.0); MEAN CORPUSCULAR HEMOGLOBIN 29.4 pg (27.0-33.0); MEAN CORPUSCULAR HGB CONC 32.4 g/dl (32.0-36.5); MEAN CORPUSCULAR VOLUME 90.8 fl (80.0-96.0); MONO # 0.6 10^3/uL (0.0-0.8); MONO % 7.5 % (2.0-8.0); NEUTROPHILS # 4.6 10^3/uL (1.5-8.5); NEUTROPHILS % 62.2 % (36.0-66.0); PLATELET COUNT, AUTOMATED 289 10^3/uL (150-450); RED BLOOD COUNT 4.79 10^6/uL (4.00-5.40); WHITE BLOOD COUNT 7.4 10^3/uL (4.0-10.0)
[2022-04-06 11:49] LABS: ALBUMIN 3.9 GM/DL (3.2-5.2); ALT/SGPT 19 U/L (12-78); BILIRUBIN,TOTAL 0.3 MG/DL (0.2-1.0); BLOOD UREA NITROGEN 10 MG/DL (7-18); CALCIUM LEVEL 9.5 MG/DL (8.5-10.1); CARBON DIOXIDE LEVEL 27 MEQ/L (21-32); CHLORIDE LEVEL 108 MEQ/L (98-107); CREATININE FOR GFR 0.62 MG/DL (0.55-1.30); GLOMERULAR FILTRATION RATE > 60.0 (>60); GLUCOSE, FASTING 80 MG/DL (70-100); MAGNESIUM LEVEL 1.9 MG/DL (1.8-2.4); POTASSIUM SERUM 4.3 MEQ/L (3.5-5.1); SODIUM LEVEL 140 MEQ/L (136-145); TOTAL PROTEIN 7.1 GM/DL (6.4-8.2)
[2022-04-06 18:25] LABS: FOLATE 14.5 NG/ML; VITAMIN B12 LEVEL 446 PG/ML
[2022-04-07 13:39] LABS: ALBUMIN 4.37 GM/DL (3.29-5.55); ALBUMIN % 61.5 % (55.8-66.1); ALPHA-1-GLOBULIN % 4.4 % (2.9-4.9); ALPHA-1-GLOBULINS 0.31 GM/DL (0.17-0.41); ALPHA-2-GLOBULINS 0.78 GM/DL (0.42-0.99); BETA-1-GLOBULINS 0.43 GM/DL (0.28-0.60); BETA-2-GLOBULINS 0.34 GM/DL (0.19-0.55); BETA-2-GLOBULINS % 4.8 % (3.2-6.5); GAMMA GLOBULIN % 12.3 % (11.1-18.8); GAMMA GLOBULINS 0.87 GM/DL (0.65-1.58)
== END ==
LOC: M LAB 08:38
PROVIDERS: ATTEND Psychiatry & Neurology Neurology
DX: R25.1 Tremor, unspecified (principal)

== ENCOUNTER → 2022-04-10 | Outpatient (REF) | payer OTHER | LOC: M LAB REF 17:04 | PROVIDERS: ATTEND Physician Assistant | DX: C56.3 Malignant neoplasm of bilateral ovaries (principal) ==

== ENCOUNTER → 2022-05-19 | Outpatient (CLI) | payer OTHER ==
[~2022-05-19] MED LIST changes: +GASTROGRAFIN SOLUTION 30ML As Ordered ONE; +ISOVUE-370 76% 100ML VIAL As Ordered ONE
== END ==
LOC: M RAD 09:00
PROVIDERS: ATTEND Nurse Practitioner Family
DX: C56.3 Malignant neoplasm of bilateral ovaries (principal); R63.4 Abnormal weight loss

== ENCOUNTER → 2022-06-09 | Outpatient (CLI) | payer OTHER ==
[~2022-06-09] MED LIST changes: -GASTROGRAFIN SOLUTION 30ML As Ordered ONE; -ISOVUE-370 76% 100ML VIAL As Ordered ONE
== END ==
LOC: M PLALAB 10:58
PROVIDERS: ATTEND Obstetrics & Gynecology
DX: D39.10 Neoplasm of uncertain behavior of unspecified ovary (principal)

== ENCOUNTER → 2022-06-23 | Outpatient (CLI) | payer OTHER ==
[~2022-06-23] MED LIST changes: +OMEP40CA5 PO
== END ==
LOC: M PLAIMG 10:25
PROVIDERS: ATTEND Physician Assistant
DX: M94.251 Chondromalacia, right hip (principal); M70.61 Trochanteric bursitis, right hip

== ENCOUNTER 2022-06-25 05:54 | Emergency (ER) | payer OTHER ==
[~2022-06-25] VITALS: Ht 154.9 cm; Wt 76.4 kg
[2022-06-25 05:54] VITALS: BP 111/67
[~2022-06-25 05:54] MED LIST changes: -OMEP40CA5 PO
[2022-06-25] MEDS ORDERED: OMEP40CA5 PO (06:06)
== END 2022-06-25 09:05 | disposition left against medical advice (07) ==
LOC: M ED 05:54
DX: Z53.21 Procedure and treatment not carried out due to patient leaving prior to being seen by health care provider (principal)

== ENCOUNTER → 2022-06-26 | Outpatient (CLI) | payer OTHER ==
[~2022-06-26] MED LIST changes: +OMEP40CA5 PO
== END ==
LOC: M WHC 09:05
PROVIDERS: ATTEND Obstetrics & Gynecology
DX: Z12.31 Encounter for screening mammogram for malignant neoplasm of breast (principal); Z15.01 Genetic susceptibility to malignant neoplasm of breast; Z90.710 Acquired absence of both cervix and uterus; Z85.43 Personal history of malignant neoplasm of ovary

== ENCOUNTER → 2022-07-18 | Outpatient (CLI) | payer OTHER | LOC: M PLALAB 10:32 | PROVIDERS: ATTEND Obstetrics & Gynecology | DX: C65.1 Malignant neoplasm of right renal pelvis (principal) ==

== ENCOUNTER → 2022-08-08 | Outpatient (REF) | payer OTHER ==
[2022-08-08 18:33] LABS: ALBUMIN 4.1 G/DL (3.2-5.2); ALKALINE PHOSPHATASE 114 U/L (46-116); ALT/SGPT 23 U/L (7.0-40); AST/SGOT 19 U/L (<34); BILIRUBIN,TOTAL 0.3 MG/DL (0.3-1.2); BLOOD UREA NITROGEN 13 MG/DL (9-23); CALCIUM LEVEL 9.6 MG/DL (8.5-10.1); CARBON DIOXIDE LEVEL 28 MMOL/L (20-31); CHLORIDE LEVEL 105 MMOL/L (98-107); CHOLESTEROL LEVEL 187 MG/DL (<200); CHOLESTEROL RISK RATIO 3.92 (<5); CREATININE FOR GFR 0.62 MG/DL (0.55-1.30); GLOMERULAR FILTRATION RATE > 60.0 (>60); GLUCOSE, FASTING 77 MG/DL (60-100); HDL CHOLESTEROL 47.6 MG/DL (>40); LDL CHOLESTEROL 121.2 MG/DL (<100); NON-HDL-C 139 MG/DL; POTASSIUM SERUM 4.5 MMOL/L (3.5-5.1); PTH INTACT 91.3 PG/ML (18.5-88.0); SODIUM LEVEL 141 MMOL/L (136-145); TOTAL PROTEIN 7.2 G/DL (5.7-8.2); TRIGLYCERIDES LEVEL 91 MG/DL (<150)
[2022-08-08 18:41] LABS: THYROID STIMULATING HORMONE 4.331 uIU/ML (0.55-4.78)
== END ==
LOC: M LAB REF 16:21
PROVIDERS: ATTEND Physician Assistant
DX: R74.01 Elevation of levels of liver transaminase levels (principal); E83.52 Hypercalcemia; R63.5 Abnormal weight gain; E65 Localized adiposity; Z13.29 Encounter for screening for other suspected endocrine disorder

== ENCOUNTER → 2022-08-29 | Outpatient (CLI) | payer OTHER ==
[2022-08-29 11:18] LABS: BASO # 0.1 10^3/uL (0.0-0.2); BASO % 0.8 % (0.0-1.0); EOS # 0.4 10^3/uL (0.0-0.5); EOS % 5.4 % (0.0-3.0); HEMATOCRIT 42.9 % (36.0-47.0); HEMOGLOBIN 14.1 g/dl (12.0-15.5); LYMPH # 1.8 10^3/uL (1.5-5.0); LYMPH % 25.3 % (24.0-44.0); MEAN CORPUSCULAR HEMOGLOBIN 29.4 pg (27.0-33.0); MEAN CORPUSCULAR HGB CONC 32.9 g/dl (32.0-36.5); MEAN CORPUSCULAR VOLUME 89.4 fl (80.0-96.0); MONO # 0.6 10^3/uL (0.0-0.8); MONO % 8.4 % (2.0-8.0); NEUTROPHILS # 4.4 10^3/uL (1.5-8.5); NEUTROPHILS % 59.8 % (36.0-66.0); PLATELET COUNT, AUTOMATED 318 10^3/uL (150-450); WHITE BLOOD COUNT 7.3 10^3/uL (4.0-10.0)
[2022-08-29 11:46] LABS: ALT/SGPT 14 U/L (7.0-40); AST/SGOT 18 U/L (<34); CREATININE FOR GFR 0.61 MG/DL (0.55-1.30); GLOMERULAR FILTRATION RATE > 60.0 (>60); RHEUMATOID FACTOR QUANT < 3.5 IU/ML (<14)
[2022-08-29 12:09] LABS: ERYTHROCYTE SEDIMENTATION RATE 15 mm/hr (0-20)
== END ==
LOC: M LAB 09:25
PROVIDERS: ATTEND Nurse Practitioner Family
DX: M25.50 Pain in unspecified joint (principal)

== ENCOUNTER → 2022-10-10 | Outpatient (CLI) | payer OTHER, MEDICAID | LOC: M PAL 10:37 | PROVIDERS: ATTEND Nurse Practitioner Adult Health | DX: C56.1 Malignant neoplasm of right ovary (principal); M79.7 Fibromyalgia; Z90.710 Acquired absence of both cervix and uterus; Z15.01 Genetic susceptibility to malignant neoplasm of breast; Z51.5 Encounter for palliative care; N94.10 Unspecified dyspareunia; R10.2 Pelvic and perineal pain; G89.29 Other chronic pain; M54.9 Dorsalgia, unspecified; F43.12 Post-traumatic stress disorder, chronic; F32.A Depression, unspecified; F41.9 Anxiety disorder, unspecified; R63.8 Other symptoms and signs concerning food and fluid intake; R63.0 Anorexia; F17.210 Nicotine dependence, cigarettes, uncomplicated; Z88.1 Allergy status to other antibiotic agents; Z88.6 Allergy status to analgesic agent; Z91.018 Allergy to other foods; Z80.1 Family history of malignant neoplasm of trachea, bronchus and lung ==

== ENCOUNTER → 2022-11-02 | Outpatient (CLI) | payer OTHER | LOC: M WHC 08:02 | PROVIDERS: ATTEND Obstetrics & Gynecology | DX: Z85.43 Personal history of malignant neoplasm of ovary (principal); Z90.79 Acquired absence of other genital organ(s) ==

== ENCOUNTER → 2022-11-06 | Outpatient (CLI) | payer OTHER ==
[2022-11-06 09:32] LABS: BLOOD UREA NITROGEN 12 MG/DL (9-23); CALCIUM LEVEL 9.2 MG/DL (8.5-10.1); CARBON DIOXIDE LEVEL 29 MMOL/L (20-31); CHLORIDE LEVEL 108 MMOL/L (98-107); CREATININE FOR GFR 0.68 MG/DL (0.55-1.30); GLOMERULAR FILTRATION RATE > 60.0 (>60); GLUCOSE, FASTING 101 MG/DL (60-100); MAGNESIUM LEVEL 1.8 MG/DL (1.8-2.4); PHOSPHORUS LEVEL 3.2 MG/DL (2.5-4.9); POTASSIUM SERUM 4.4 MMOL/L (3.5-5.1); SODIUM LEVEL 143 MMOL/L (136-145)
[2022-11-06 09:33] LABS: PTH INTACT 86.2 PG/ML (18.5-88.0)
[2022-11-06 09:35] LABS: TOTAL 25(OH) VITAMIN D 25.4 NG/ML (20.0-100.0)
== END ==
LOC: M LAB 08:32
PROVIDERS: ATTEND Internal Medicine Endocrinology, Diabetes & Metabolism
DX: E21.3 Hyperparathyroidism, unspecified (principal); R94.6 Abnormal results of thyroid function studies

== ENCOUNTER → 2022-12-28 | Outpatient (CLI) | payer OTHER | LOC: M PAL 08:02 | PROVIDERS: ATTEND Nurse Practitioner Adult Health | DX: C56.9 Malignant neoplasm of unspecified ovary (principal); Z90.710 Acquired absence of both cervix and uterus; G89.29 Other chronic pain; M54.9 Dorsalgia, unspecified; M25.551 Pain in right hip; M25.552 Pain in left hip; R10.2 Pelvic and perineal pain; F17.200 Nicotine dependence, unspecified, uncomplicated; Z79.899 Other long term (current) drug therapy; Z88.6 Allergy status to analgesic agent; Z91.018 Allergy to other foods; Z88.1 Allergy status to other antibiotic agents; Z88.8 Allergy status to other drugs, medicaments and biological substances; Z51.5 Encounter for palliative care ==

== ENCOUNTER → 2023-03-06 | Outpatient (CLI) | payer OTHER ==
[~2023-03-06] MED LIST changes: +ACE65ERTAB PO; +MELO7.5T35 PO
== END ==
LOC: M ONCM 15:00
PROVIDERS: ATTEND Dietitian, Registered
DX: C56.1 Malignant neoplasm of right ovary (principal); Z71.3 Dietary counseling and surveillance; Z68.31 Body mass index [BMI] 31.0-31.9, adult

== ENCOUNTER → 2023-03-12 | Outpatient (CLI) | payer OTHER ==
[~2023-03-12] MED LIST changes: -ACE65ERTAB PO; -MELO7.5T35 PO
[2023-03-12 16:26] LABS: BASO # 0.1 10^3/uL (0.0-0.2); EOS # 0.4 10^3/uL (0.0-0.5); EOS % 5.3 % (0.0-3.0); HEMATOCRIT 43.6 % (36.0-47.0); HEMOGLOBIN 14.6 g/dl (12.0-15.5); LYMPH # 2.8 10^3/uL (1.5-5.0); LYMPH % 34.3 % (24.0-44.0); MEAN CORPUSCULAR HGB CONC 33.5 g/dl (32.0-36.5); MEAN CORPUSCULAR VOLUME 89.7 fl (80.0-96.0); MONO # 0.6 10^3/uL (0.0-0.8); MONO % 7.4 % (2.0-8.0); NEUTROPHILS # 4.3 10^3/uL (1.5-8.5); NEUTROPHILS % 51.8 % (36.0-66.0); PLATELET COUNT, AUTOMATED 327 10^3/uL (150-450); RED BLOOD COUNT 4.86 10^6/uL (4.00-5.40); WHITE BLOOD COUNT 8.3 10^3/uL (4.0-10.0)
[2023-03-12 16:40] LABS: HEMOGLOBIN A1c 4.5 % (4.0-6.0)
[2023-03-12 16:50] LABS: ALBUMIN 4.1 G/DL (3.2-5.2); ALKALINE PHOSPHATASE 125 U/L (46-116); ALT/SGPT 16 U/L (7.0-40); AST/SGOT 15 U/L (<34); BILIRUBIN,TOTAL 0.2 MG/DL (0.3-1.2); BLOOD UREA NITROGEN 13 MG/DL (9-23); CALCIUM LEVEL 9.8 MG/DL (8.5-10.1); CARBON DIOXIDE LEVEL 30 MMOL/L (20-31); CHLORIDE LEVEL 107 MMOL/L (98-107); CREATININE FOR GFR 0.67 MG/DL (0.55-1.30); GLOMERULAR FILTRATION RATE > 60.0 (>60); GLUCOSE, FASTING 90 MG/DL (60-100); POTASSIUM SERUM 4.2 MMOL/L (3.5-5.1); SODIUM LEVEL 140 MMOL/L (136-145); TOTAL PROTEIN 6.9 G/DL (5.7-8.2)
== END ==
LOC: M LAB 15:47
PROVIDERS: ATTEND Nurse Practitioner Family
DX: E66.9 Obesity, unspecified (principal); E83.52 Hypercalcemia; R30.0 Dysuria

== ENCOUNTER → 2023-03-13 | Outpatient (REF) | LOC: M PLAIMG 14:33 | PROVIDERS: ATTEND Internal Medicine | DX: R52 Pain, unspecified (principal) ==

== ENCOUNTER → 2023-03-16 | Outpatient (CLI) | payer OTHER | LOC: M PLALAB 08:52 | PROVIDERS: ATTEND Obstetrics & Gynecology | DX: D27.1 Benign neoplasm of left ovary (principal) ==

== ENCOUNTER → 2023-03-27 | Outpatient (CLI) | payer OTHER ==
[~2023-03-27] MED LIST changes: +ACE65ERTAB PO; +MELO7.5T35 PO; +PROHANCE 279.3MG/ML 15ML VIAL As Ordered ONE
== END ==
LOC: M RAD 17:02
PROVIDERS: ATTEND Nurse Practitioner Family
DX: M89.9 Disorder of bone, unspecified (principal)
CPT/HCPCS: 73723; A9576

== ENCOUNTER 2023-03-28 10:38 | Emergency (ER) | payer OTHER ==
[~2023-03-28] VITALS: Ht 154.9 cm; Wt 82.3 kg
[~2023-03-28 10:38] MED LIST changes: -ACE65ERTAB PO; -MELO7.5T35 PO; -PROHANCE 279.3MG/ML 15ML VIAL As Ordered ONE
[2023-03-28] MEDS ORDERED: ACE65ERTAB PO (10:44)
[2023-03-28] MEDS ORDERED: TRAM50TA2 PO (13:01)
[2023-03-28] MEDS ORDERED: MELO7.5T35 PO (13:01)
[2023-03-28 13:18] VITALS: BP 114/74; TEMP 97.3; O2SAT 98
== END 2023-03-28 13:19 | disposition home or self-care (01) ==
LOC: M ED 10:38
DX: S73.191A Other sprain of right hip, initial encounter (principal); X50.0XXA Overexertion from strenuous movement or load, initial encounter; M25.551 Pain in right hip; F17.200 Nicotine dependence, unspecified, uncomplicated; J45.909 Unspecified asthma, uncomplicated; M54.50 Low back pain, unspecified; Z87.442 Personal history of urinary calculi; Z88.1 Allergy status to other antibiotic agents; Z88.6 Allergy status to analgesic agent; Z91.048 Other nonmedicinal substance allergy status; Z79.52 Long term (current) use of systemic steroids; Z79.899 Other long term (current) drug therapy

== ENCOUNTER → 2023-04-03 | Outpatient (CLI) | payer OTHER ==
[~2023-04-03] MED LIST changes: +ACE65ERTAB PO; +MELO7.5T35 PO
== END ==
LOC: M ONCM 08:00
PROVIDERS: ATTEND Dietitian, Registered
DX: C56.1 Malignant neoplasm of right ovary (principal); Z71.3 Dietary counseling and surveillance; Z68.31 Body mass index [BMI] 31.0-31.9, adult

== ENCOUNTER → 2023-04-24 | Outpatient (CLI) | payer OTHER | LOC: M ONCM 09:11 | PROVIDERS: ATTEND Dietitian, Registered | DX: C56.1 Malignant neoplasm of right ovary (principal); Z71.3 Dietary counseling and surveillance; Z68.24 Body mass index [BMI] 24.0-24.9, adult ==

== ENCOUNTER → 2023-05-08 | Outpatient (CLI) | payer OTHER | LOC: M PAL 08:04 | PROVIDERS: ATTEND Nurse Practitioner Family | DX: C56.1 Malignant neoplasm of right ovary (principal); G89.29 Other chronic pain; E66.9 Obesity, unspecified; M54.50 Low back pain, unspecified; M84.859 Other disorders of continuity of bone, unspecified pelvic region and thigh; F17.210 Nicotine dependence, cigarettes, uncomplicated; Z51.5 Encounter for palliative care; Z79.1 Long term (current) use of non-steroidal anti-inflammatories (NSAID); Z79.899 Other long term (current) drug therapy; Z88.1 Allergy status to other antibiotic agents; Z88.6 Allergy status to analgesic agent; Z88.8 Allergy status to other drugs, medicaments and biological substances; Z91.09 Other allergy status, other than to drugs and biological substances; Z90.710 Acquired absence of both cervix and uterus; Z90.722 Acquired absence of ovaries, bilateral; Z90.79 Acquired absence of other genital organ(s) ==

== ENCOUNTER → 2023-07-09 | Outpatient (CLI) | payer OTHER | LOC: M PLALAB 10:18 | PROVIDERS: ATTEND Obstetrics & Gynecology | DX: D39.10 Neoplasm of uncertain behavior of unspecified ovary (principal) ==

== ENCOUNTER → 2023-08-22 | Outpatient (CLI) | payer OTHER | LOC: M PAL 08:24 | PROVIDERS: ATTEND Nurse Practitioner Adult Health | DX: C56.1 Malignant neoplasm of right ovary (principal); G89.29 Other chronic pain; F43.10 Post-traumatic stress disorder, unspecified; M54.50 Low back pain, unspecified; M25.551 Pain in right hip; M25.552 Pain in left hip; M79.659 Pain in unspecified thigh; M79.7 Fibromyalgia; M84.859 Other disorders of continuity of bone, unspecified pelvic region and thigh; Z63.8 Other specified problems related to primary support group; F17.210 Nicotine dependence, cigarettes, uncomplicated; Z51.5 Encounter for palliative care; Z79.1 Long term (current) use of non-steroidal anti-inflammatories (NSAID); Z79.899 Other long term (current) drug therapy; Z88.1 Allergy status to other antibiotic agents; Z88.6 Allergy status to analgesic agent; Z88.8 Allergy status to other drugs, medicaments and biological substances; Z91.09 Other allergy status, other than to drugs and biological substances; Z90.710 Acquired absence of both cervix and uterus; Z90.722 Acquired absence of ovaries, bilateral; Z90.79 Acquired absence of other genital organ(s) ==

== ENCOUNTER → 2023-09-20 | Outpatient (CLI) | payer OTHER | LOC: M WHC 08:42 | PROVIDERS: ATTEND Obstetrics & Gynecology | DX: D39.10 Neoplasm of uncertain behavior of unspecified ovary (principal); Z90.710 Acquired absence of both cervix and uterus; Z90.722 Acquired absence of ovaries, bilateral ==

== ENCOUNTER → 2023-10-03 | Outpatient (CLI) | payer OTHER ==
[~2023-10-03] VITALS: Ht 160 cm; Wt 86.1 kg
[2023-10-03 09:54] VITALS: BP 114/79; O2SAT 95
== END ==
LOC: M PAL 09:19
PROVIDERS: ATTEND Nurse Practitioner Adult Health
DX: C56.1 Malignant neoplasm of right ovary (principal); G89.29 Other chronic pain; F43.10 Post-traumatic stress disorder, unspecified; M54.50 Low back pain, unspecified; M25.551 Pain in right hip; M25.552 Pain in left hip; M79.659 Pain in unspecified thigh; M79.7 Fibromyalgia; M81.0 Age-related osteoporosis without current pathological fracture; M84.859 Other disorders of continuity of bone, unspecified pelvic region and thigh; R63.0 Anorexia; Z63.8 Other specified problems related to primary support group; F17.210 Nicotine dependence, cigarettes, uncomplicated; Z51.5 Encounter for palliative care; Z79.1 Long term (current) use of non-steroidal anti-inflammatories (NSAID); Z79.899 Other long term (current) drug therapy; Z88.1 Allergy status to other antibiotic agents; Z88.6 Allergy status to analgesic agent; Z88.8 Allergy status to other drugs, medicaments and biological substances; Z91.09 Other allergy status, other than to drugs and biological substances; Z90.710 Acquired absence of both cervix and uterus; Z90.722 Acquired absence of ovaries, bilateral; Z90.79 Acquired absence of other genital organ(s); F41.9 Anxiety disorder, unspecified; F32.A Depression, unspecified

== ENCOUNTER 2024-01-18 17:59 | Emergency (ER) | payer MEDICAID, OTHER ==
[~2024-01-18] VITALS: Ht 154.9 cm; Wt 86.9 kg
[~2024-01-18 17:59] MED LIST changes: +ONDA-282 PO; -ONDA4TAB6 PO
[2024-01-18 21:05] VITALS: BP 118/66; TEMP 97.7; O2SAT 96
[2024-01-18] MEDS: ACETAMINOPHEN 325 MG TAB PO ONE (23:59)
[2024-01-18] MEDS: NAPROXEN 250 MG TAB PO ONE (23:59)
[2024-01-19] MEDS: LIDOCAINE 5% (LIDODERM) PATCH TD ONE
[2024-01-19] MEDS ORDERED: NAPR-837 PO (00:17)
[2024-01-19] MEDS ORDERED: METH-1165 PO (00:17)
[2024-01-19] MEDS ORDERED: TRAM50TA2 PO (00:17)
== END 2024-01-19 00:53 | disposition home or self-care (01) ==
LOC: M ED 17:59
DX: M51.36 Other intervertebral disc degeneration, lumbar region (principal); M54.50 Low back pain, unspecified; Z88.0 Allergy status to penicillin; Z88.6 Allergy status to analgesic agent; Z88.8 Allergy status to other drugs, medicaments and biological substances; Z79.52 Long term (current) use of systemic steroids; Z79.899 Other long term (current) drug therapy; Z79.1 Long term (current) use of non-steroidal anti-inflammatories (NSAID)

== ENCOUNTER 2024-01-24 12:24 | Emergency (ER) | payer OTHER ==
[~2024-01-24] VITALS: Ht 154.9 cm; Wt 85.6 kg
[~2024-01-24 12:24] MED LIST changes: +METH-1165 PO
[2024-01-24 12:25] VITALS: BP 115/76; TEMP 97.7; O2SAT 96
[2024-01-24 13:47] LABS: BASO # 0.1 10^3/uL (0.0-0.2); BASO % 0.7 % (0.0-1.0); EOS # 0.3 10^3/uL (0.0-0.5); EOS % 3.1 % (0.0-3.0); HEMATOCRIT 46.5 % (36.0-47.0); HEMOGLOBIN 15.7 g/dl (12.0-15.5); LYMPH # 2.2 10^3/uL (1.5-5.0); LYMPH % 25.1 % (24.0-44.0); MEAN CORPUSCULAR HEMOGLOBIN 30.5 pg (27.0-33.0); MEAN CORPUSCULAR HGB CONC 33.8 g/dl (32.0-36.5); MEAN CORPUSCULAR VOLUME 90.3 fl (80.0-96.0); MONO # 0.6 10^3/uL (0.0-0.8); MONO % 6.2 % (2.0-8.0); NEUTROPHILS # 5.7 10^3/uL (1.5-8.5); NEUTROPHILS % 64.7 % (36.0-66.0); PLATELET COUNT, AUTOMATED 335 10^3/uL (150-450); RED BLOOD COUNT 5.15 10^6/uL (4.00-5.40); WHITE BLOOD COUNT 8.8 10^3/uL (4.0-10.0)
[2024-01-24] MEDS ORDERED: ISOVUE-370 76% 100ML VIAL As Ordered ONE (13:55)
[2024-01-24] MEDS: NS 1,000 ML IV ONE (14:06)
[2024-01-24] MEDS: ONDANSETRON 4MG 2ML VIAL IV ONE (14:07)
[2024-01-24] MEDS: KETOROLAC 30 MG/ML 1ML VIAL IV ONE (14:07)
[2024-01-24 14:11] LABS: LIPASE 26 U/L (12-53)
[2024-01-24 14:13] LABS: ALBUMIN 4.3 G/DL (3.2-5.2); ALKALINE PHOSPHATASE 146 U/L (46-116); ALT/SGPT 20 U/L (7.0-40); AST/SGOT 14 U/L (<34); BILIRUBIN,DIRECT < 0.1 MG/DL (<0.4); BILIRUBIN,TOTAL 0.4 MG/DL (0.3-1.2); TOTAL PROTEIN 7.6 G/DL (5.7-8.2)
[2024-01-24] MEDS ORDERED: MEDR4PAK PO (14:56)
== END 2024-01-24 15:22 | disposition home or self-care (01) ==
LOC: M ED 12:24
DX: K50.00 Crohn's disease of small intestine without complications (principal); K76.0 Fatty (change of) liver, not elsewhere classified; N20.0 Calculus of kidney; J45.909 Unspecified asthma, uncomplicated; M54.50 Low back pain, unspecified; F41.9 Anxiety disorder, unspecified; F32.A Depression, unspecified; G35 Multiple sclerosis; C56.9 Malignant neoplasm of unspecified ovary; F17.200 Nicotine dependence, unspecified, uncomplicated; M48.061 Spinal stenosis, lumbar region without neurogenic claudication; Z87.442 Personal history of urinary calculi; Z88.0 Allergy status to penicillin; Z88.6 Allergy status to analgesic agent; Z88.8 Allergy status to other drugs, medicaments and biological substances; Z79.52 Long term (current) use of systemic steroids; Z79.899 Other long term (current) drug therapy
CPT/HCPCS: 74177; 80047; 80076; 81001; 83690; 85025; 96361; 96374; 99283; J1885; J2405; Q9967

== ENCOUNTER → 2024-01-28 | Outpatient (CLI) | payer OTHER ==
[~2024-01-28] MED LIST changes: +MEDR4PAK PO
== END ==
LOC: M LAB 13:27
PROVIDERS: ATTEND Obstetrics & Gynecology
DX: D39.10 Neoplasm of uncertain behavior of unspecified ovary (principal)

== ENCOUNTER → 2024-03-14 | Outpatient (REF) | payer OTHER ==
[~2024-03-14] MED LIST changes: +GABA-1172 PO; -GABA-282 PO
[2024-03-14 17:33] LABS: BASO # 0.1 10^3/uL (0.0-0.2); EOS # 0.3 10^3/uL (0.0-0.5); EOS % 4.8 % (0.0-3.0); HEMOGLOBIN 14.6 g/dl (12.0-15.5); LYMPH # 2.1 10^3/uL (1.5-5.0); LYMPH % 29.7 % (24.0-44.0); MEAN CORPUSCULAR HEMOGLOBIN 30.4 pg (27.0-33.0); MEAN CORPUSCULAR HGB CONC 33.2 g/dl (32.0-36.5); MEAN CORPUSCULAR VOLUME 91.7 fl (80.0-96.0); MONO # 0.4 10^3/uL (0.0-0.8); MONO % 5.8 % (2.0-8.0); NEUTROPHILS % 58.6 % (36.0-66.0); PLATELET COUNT, AUTOMATED 294 10^3/uL (150-450); WHITE BLOOD COUNT 6.9 10^3/uL (4.0-10.0)
[2024-03-14 17:37] LABS: ALBUMIN 3.8 G/DL (3.2-5.2); ALKALINE PHOSPHATASE 126 U/L (46-116); ALT/SGPT 16 U/L (7.0-40); AST/SGOT < 8 U/L (<34); BILIRUBIN,TOTAL 0.2 MG/DL (0.3-1.2); BLOOD UREA NITROGEN 13 MG/DL (9-23); CALCIUM LEVEL 10.2 MG/DL (8.5-10.1); CARBON DIOXIDE LEVEL 27 MMOL/L (20-31); CHLORIDE LEVEL 108 MMOL/L (98-107); CHOLESTEROL LEVEL 196 MG/DL (<200); CHOLESTEROL RISK RATIO 5.79 (<5); GLOMERULAR FILTRATION RATE > 60.0 (>60); GLUCOSE, FASTING 116 MG/DL (60-100); HDL CHOLESTEROL 33.8 MG/DL (>40); IRON (FE) 39 UG/DL (50-170); NON-HDL-C 162.2 MG/DL; PERCENT SATURATION 12.3 % (13.2-45.0); POTASSIUM SERUM 4.3 MMOL/L (3.5-5.1); SODIUM LEVEL 141 MMOL/L (136-145); TOTAL IRON BINDING CAPACITY 318 UG/DL (250-425); TOTAL PROTEIN 6.8 G/DL (5.7-8.2); TRIGLYCERIDES LEVEL 196 MG/DL (<150)
[2024-03-14 17:38] LABS: FERRITIN 19.1 NG/ML (7.3-270.7)
[2024-03-14 17:39] LABS: FOLATE 19.3 NG/ML (>5.4); VITAMIN B12 LEVEL 401 PG/ML (211-911)
[2024-03-14 17:50] LABS: ERYTHROCYTE SEDIMENTATION RATE 15 mm/hr (0-20)
[2024-03-19 01:38] LABS: ANTI-SACCHAROMYCES CEREV. IgA 3.5 U (<=20.0); ANTI-SACCHAROMYCES CEREV. IgG 4.9 U (<=20.0)
[2024-03-20 00:48] LABS: ANCA SCREEN REFLEX Negative (Negative)
[2024-03-20 11:12] LABS: Antimyeloperxidase(MPO) Abs < 1.0 AI (<1.0); Antiproteinase 3 (PR-3) Abs < 1.0 AI (<1.0)
== END ==
LOC: M LAB REF 16:23
PROVIDERS: ATTEND Nurse Practitioner Family
DX: K52.9 Noninfective gastroenteritis and colitis, unspecified (principal); Z13.1 Encounter for screening for diabetes mellitus; Z13.220 Encounter for screening for lipoid disorders; E66.9 Obesity, unspecified

== ENCOUNTER 2024-03-31 18:43 | Emergency (ER) | payer OTHER ==
[~2024-03-31] VITALS: Ht 154.9 cm; Wt 102.1 kg
[2024-03-31 18:48] VITALS: TEMP 97.7
[2024-03-31 20:08] LABS: BASO # 0.1 10^3/uL (0.0-0.2); BASO % 0.5 % (0.0-1.0); EOS # 0.4 10^3/uL (0.0-0.5); EOS % 3.6 % (0.0-3.0); HEMATOCRIT 43.5 % (36.0-47.0); HEMOGLOBIN 14.6 g/dl (12.0-15.5); LYMPH # 3.2 10^3/uL (1.5-5.0); LYMPH % 27.2 % (24.0-44.0); MEAN CORPUSCULAR HEMOGLOBIN 30.2 pg (27.0-33.0); MEAN CORPUSCULAR HGB CONC 33.6 g/dl (32.0-36.5); MEAN CORPUSCULAR VOLUME 90.1 fl (80.0-96.0); MONO # 0.9 10^3/uL (0.0-0.8); MONO % 7.5 % (2.0-8.0); NEUTROPHILS # 7.2 10^3/uL (1.5-8.5); NEUTROPHILS % 60.9 % (36.0-66.0); PLATELET COUNT, AUTOMATED 354 10^3/uL (150-450); RED BLOOD COUNT 4.83 10^6/uL (4.00-5.40); WHITE BLOOD COUNT 11.8 10^3/uL (4.0-10.0)
[2024-03-31 20:38] LABS: LIPASE 28 U/L (12-53)
[2024-03-31 20:40] LABS: ALBUMIN 3.8 G/DL (3.2-5.2); ALKALINE PHOSPHATASE 118 U/L (35-104); ALT/SGPT 15 U/L (7.0-40); AST/SGOT 9 U/L (<34); BILIRUBIN,DIRECT < 0.1 MG/DL (<0.4); BILIRUBIN,TOTAL < 0.2 MG/DL (0.3-1.2); BLOOD UREA NITROGEN 15 MG/DL (9-23); CALCIUM LEVEL 10.1 MG/DL (8.5-10.1); CARBON DIOXIDE LEVEL 30 MMOL/L (20-31); CHLORIDE LEVEL 110 MMOL/L (98-107); CREATININE FOR GFR 0.73 MG/DL (0.55-1.30); GLOMERULAR FILTRATION RATE > 60.0 (>60); GLUCOSE, FASTING 85 MG/DL (60-100); POTASSIUM SERUM 4.3 MMOL/L (3.5-5.1); SODIUM LEVEL 144 MMOL/L (136-145); TOTAL PROTEIN 6.9 G/DL (5.7-8.2)
[2024-04-01] MEDS ORDERED: TRAM50TA2 PO (04:29)
[2024-04-01] MEDS ORDERED: ONDA-282 PO (04:29)
[2024-04-01 04:30] VITALS: BP 95/52; O2SAT 94
== END 2024-04-01 04:55 | disposition home or self-care (01) ==
LOC: M ED 18:43
DX: R10.9 Unspecified abdominal pain (principal); F41.9 Anxiety disorder, unspecified; F32.A Depression, unspecified; M85.80 Other specified disorders of bone density and structure, unspecified site; Z88.1 Allergy status to other antibiotic agents; Z88.6 Allergy status to analgesic agent; Z88.8 Allergy status to other drugs, medicaments and biological substances; Z79.52 Long term (current) use of systemic steroids; Z79.83 Long term (current) use of bisphosphonates; Z79.899 Other long term (current) drug therapy

== ENCOUNTER → 2024-07-29 | Outpatient (CLI) | payer OTHER ==
[~2024-07-29] MED LIST changes: -CYCL5TAB PO; +CYCL5TAB4 PO
== END ==
LOC: M LAB 12:39
PROVIDERS: ATTEND Nurse Practitioner Family
DX: M25.512 Pain in left shoulder (principal)

== ENCOUNTER → 2024-07-30 | Outpatient (CLI) | payer OTHER | LOC: M RAD 11:32 | PROVIDERS: ATTEND Physician Assistant | DX: M54.50 Low back pain, unspecified (principal) ==

== ENCOUNTER → 2024-08-26 | Outpatient (CLI) | payer OTHER ==
[2024-08-26 09:32] LABS: BASO # 0.1 10^3/uL (0.0-0.2); BASO % 0.9 % (0.0-1.0); EOS # 0.4 10^3/uL (0.0-0.5); EOS % 5.7 % (0.0-3.0); HEMATOCRIT 42.9 % (36.0-47.0); HEMOGLOBIN 14.4 g/dl (12.0-15.5); LYMPH # 2.2 10^3/uL (1.5-5.0); LYMPH % 28.1 % (24.0-44.0); MEAN CORPUSCULAR HEMOGLOBIN 29.9 pg (27.0-33.0); MEAN CORPUSCULAR HGB CONC 33.6 g/dl (32.0-36.5); MEAN CORPUSCULAR VOLUME 89.2 fl (80.0-96.0); MONO # 0.6 10^3/uL (0.0-0.8); MONO % 7.5 % (2.0-8.0); NEUTROPHILS # 4.5 10^3/uL (1.5-8.5); NEUTROPHILS % 57.4 % (36.0-66.0); PLATELET COUNT, AUTOMATED 327 10^3/uL (150-450); RED BLOOD COUNT 4.81 10^6/uL (4.00-5.40); WHITE BLOOD COUNT 7.8 10^3/uL (4.0-10.0)
[2024-08-26 09:39] LABS: ALBUMIN 3.7 G/DL (3.2-5.2); ALKALINE PHOSPHATASE 123 U/L (35-104); ALT/SGPT 19 U/L (7.0-40); AST/SGOT 13 U/L (<34); BILIRUBIN,TOTAL 0.3 MG/DL (0.3-1.2); BLOOD UREA NITROGEN 10 MG/DL (9-23); CALCIUM LEVEL 9.8 MG/DL (8.5-10.1); CARBON DIOXIDE LEVEL 27 MMOL/L (20-31); CHLORIDE LEVEL 110 MMOL/L (98-107); CHOLESTEROL LEVEL 200 MG/DL (<200); CHOLESTEROL RISK RATIO 5.93 (<5); CREATININE FOR GFR 0.69 MG/DL (0.55-1.30); GLOMERULAR FILTRATION RATE > 60.0 (>60); GLUCOSE, FASTING 91 MG/DL (60-100); HDL CHOLESTEROL 33.7 MG/DL (>40); LDL CHOLESTEROL 117.7 MG/DL (<100); MAGNESIUM LEVEL 1.8 MG/DL (1.8-2.4); NON-HDL-C 166.3 MG/DL; POTASSIUM SERUM 4.6 MMOL/L (3.5-5.1); SODIUM LEVEL 142 MMOL/L (136-145); TOTAL PROTEIN 6.7 G/DL (5.7-8.2); TRIGLYCERIDES LEVEL 243 MG/DL (<150)
[2024-08-26 09:41] LABS: FREE T4 0.94 NG/DL (0.89-1.76); THYROID STIMULATING HORMONE 5.553 uIU/ML (0.55-4.78)
== END ==
LOC: M LAB 08:41
PROVIDERS: ATTEND Registered Nurse
DX: R07.9 Chest pain, unspecified (principal); R00.2 Palpitations

== ENCOUNTER → 2024-09-11 | Outpatient (CLI) | payer OTHER | LOC: M CARPUL 09:19 | PROVIDERS: ATTEND Registered Nurse | DX: R07.9 Chest pain, unspecified (principal); R06.00 Dyspnea, unspecified ==

== ENCOUNTER 2024-12-04 12:35 | Emergency (ER) | payer OTHER ==
[~2024-12-04] VITALS: Ht 154.9 cm; Wt 88.8 kg
[2024-12-04] MEDS ORDERED: ACET-683 PO (12:55)
[2024-12-04] MEDS ORDERED: TOPI-256 PO (12:55)
[2024-12-04 13:08] LABS: BASO # 0.1 10^3/uL (0.0-0.2); BASO % 0.8 % (0.0-1.0); EOS # 0.3 10^3/uL (0.0-0.5); EOS % 3.9 % (0.0-3.0); LYMPH # 1.6 10^3/uL (1.5-5.0); LYMPH % 21.6 % (24.0-44.0); MONO # 0.6 10^3/uL (0.0-0.8); MONO % 7.5 % (2.0-8.0); NEUTROPHILS # 5.0 10^3/uL (1.5-8.5); NEUTROPHILS % 65.9 % (36.0-66.0); PLATELET COUNT, AUTOMATED 266 10^3/uL (150-450)
[2024-12-04] MEDS: KETOROLAC 30 MG/ML 1 ML VIAL IV ONE (13:17)
[2024-12-04 13:37] LABS: ALT/SGPT 17 U/L (7.0-40); AST/SGOT 18 U/L (<34); CALCIUM LEVEL 9.4 MG/DL (8.5-10.1); CARBON DIOXIDE LEVEL 25 MMOL/L (20-31); CHLORIDE LEVEL 110 MMOL/L (98-107); CREATININE FOR GFR 0.63 MG/DL (0.55-1.30); GLOMERULAR FILTRATION RATE > 90.0 (>60); POTASSIUM SERUM 4.3 MMOL/L (3.5-5.1); SODIUM LEVEL 144 MMOL/L (136-145)
[2024-12-04] MEDS: NS (Normal Saline) 0.9% 1,000 ML IV ONE ×2 (13:52→15:10)
[2024-12-04] MEDS ORDERED: HOME MED LIST COMPLETE! XX SCH (14:25)
[2024-12-04 14:39] LABS: KETONE, URINE AUTO RFX NEGATIVE (NEGATIVE); LEUKOCYTE ESTERASE UR AUTO RFX NEGATIVE (NEGATIVE); NITRITE, URINE AUTO RFX NEGATIVE (NEGATIVE); RBC, URINE AUTO RFX 0 /HPF (0-3); SQUAM EPITHELIAL CELL UR AURFX 2 /HPF (0-6); WBC, URINE AUTO RFX 1 /HPF (0-3)
[2024-12-04] MEDS ORDERED: ISOVUE-370 76% 100 ML VIAL As Ordered ONE (14:57)
[2024-12-04 16:15] VITALS: TEMP 98.6; O2SAT 97
[2024-12-04 16:34] VITALS: BP 100/64
[2024-12-04] MEDS ORDERED: KETO-204 PO (16:45)
[2024-12-04] MEDS ORDERED: CIPR-249 PO (16:45)
== END 2024-12-04 16:54 | disposition home or self-care (01) ==
LOC: EDBD 12:35 → M ED 12:35
DX: N20.0 Calculus of kidney (principal); N39.0 Urinary tract infection, site not specified; I95.1 Orthostatic hypotension; J45.909 Unspecified asthma, uncomplicated; F41.9 Anxiety disorder, unspecified; F32.A Depression, unspecified; Z87.442 Personal history of urinary calculi; Z88.1 Allergy status to other antibiotic agents; Z88.6 Allergy status to analgesic agent; Z91.048 Other nonmedicinal substance allergy status; Z79.52 Long term (current) use of systemic steroids; Z79.1 Long term (current) use of non-steroidal anti-inflammatories (NSAID); Z79.2 Long term (current) use of antibiotics; Z79.899 Other long term (current) drug therapy
CPT/HCPCS: 74174; 74176; 80048; 80076; 81001; 83690; 85025; 93041; 96361; 96374; 96375; 99285; J1885; J2765; Q9967

== ENCOUNTER 2025-03-02 10:49 | Emergency (ER) | payer OTHER ==
[~2025-03-02] VITALS: Ht 154.9 cm; Wt 88.1 kg
[~2025-03-02 10:49] MED LIST changes: -ACE65ERTAB PO; +ACET-1593 PO; +ACET-683 PO; +CIPR-249 PO; -IBUP-1022 PO; +IBUP600T42 PO; +KETO-204 PO; +TOPI-256 PO
[2025-03-02] MEDS ORDERED: IBUP1TAB5 PO (10:56)
[2025-03-02] MEDS: KETOROLAC 60 MG/2 ML VIAL IM ONE (12:33)
[2025-03-02] MEDS: ACETAMINOPHEN 325 MG TAB PO ONE (12:33)
[2025-03-02] MEDS ORDERED: KETO-204 PO (13:39)
[2025-03-02 13:44] VITALS: BP 115/64; TEMP 97.9; O2SAT 97
== END 2025-03-02 13:46 | disposition home or self-care (01) ==
LOC: M ED 10:49
DX: M54.50 Low back pain, unspecified (principal); G35 Multiple sclerosis; J45.909 Unspecified asthma, uncomplicated; R51.9 Headache, unspecified; C56.9 Malignant neoplasm of unspecified ovary; F41.9 Anxiety disorder, unspecified; Z87.442 Personal history of urinary calculi; Z79.1 Long term (current) use of non-steroidal anti-inflammatories (NSAID); Z79.52 Long term (current) use of systemic steroids; Z79.899 Other long term (current) drug therapy; Z88.1 Allergy status to other antibiotic agents; Z88.6 Allergy status to analgesic agent; Z88.8 Allergy status to other drugs, medicaments and biological substances; Z91.048 Other nonmedicinal substance allergy status
CPT/HCPCS: 72110; 96372; 99283; J1885

== ENCOUNTER 2025-03-24 13:57 | Emergency (ER) | payer OTHER ==
[~2025-03-24] VITALS: Ht 162.6 cm; Wt 88.9 kg
[~2025-03-24 13:57] MED LIST changes: +IBUP1TAB5 PO
[2025-03-24] MEDS: PERCOCET 5MG/325MG TAB PO ONE (17:06)
[2025-03-24] MEDS ORDERED: PRED10TA2 PO (18:51)
[2025-03-24 18:58] VITALS: BP 102/58; TEMP 97.7; O2SAT 95
== END 2025-03-24 19:01 | disposition home or self-care (01) ==
LOC: M ED 13:57
DX: M25.551 Pain in right hip (principal); G35.D Multiple sclerosis, unspecified; J45.909 Unspecified asthma, uncomplicated; C56.9 Malignant neoplasm of unspecified ovary; Z88.1 Allergy status to other antibiotic agents; Z88.6 Allergy status to analgesic agent; Z88.8 Allergy status to other drugs, medicaments and biological substances; Z91.048 Other nonmedicinal substance allergy status; Z79.52 Long term (current) use of systemic steroids; Z79.1 Long term (current) use of non-steroidal anti-inflammatories (NSAID); Z79.899 Other long term (current) drug therapy; Z87.442 Personal history of urinary calculi

== ENCOUNTER → 2025-03-25 | Outpatient (CLI) | payer OTHER ==
[~2025-03-25] MED LIST changes: +PRED10TA2 PO
== END ==
LOC: M PLAIMG 14:17
PROVIDERS: ATTEND Nurse Practitioner Family
DX: M25.551 Pain in right hip (principal)

== ENCOUNTER → 2025-04-23 | Outpatient (REF) | payer OTHER, MEDICAID ==
[~2025-04-23] MED LIST changes: -EQ 8650T PO; +[UNRECOGNIZED DRUG - CODE] PO
== END ==
LOC: M SFHCWAGY 10:32
PROVIDERS: ATTEND Obstetrics & Gynecology
DX: Z12.72 Encounter for screening for malignant neoplasm of vagina (principal)